=== PATIENT | female | born 1965 | race Two or more races ===

== ENCOUNTER 2020-01-11 11:16 | Observation (INO) | payer OTHER ==
[~2020-01-11] VITALS: Ht 160 cm; Wt 78.1 kg
[2020-01-11] MEDS ORDERED: SODIUM CHLORIDE FLUSH 10ML SYR IVF ONE (12:00)
[2020-01-11] MEDS ORDERED: ASPIRIN 81 MG TABLET CHEW PO ONE (12:00)
[2020-01-11] MEDS ORDERED: ONDANSETRON 2MG/ML, 2ML IVPush ONE (12:00)
[2020-01-11] MEDS ORDERED: LORazepam 2 MG/ML, 1ML IVPush ONE (12:00)
[2020-01-11] MEDS ORDERED: ASPIRIN 81 MG TABLET CHEW ONE (12:09)
[2020-01-11] MEDS ORDERED: ONDANSETRON 2MG/ML, 2ML ONE (12:09)
[2020-01-11] MEDS ORDERED: LORazepam 2 MG/ML, 1ML ONE (12:10)
[2020-01-11 12:18] LABS: BASOPHILS # (AUTO) 0.21 x10^3/uL (0-0.1); BASOPHILS % (AUTO) 4 % (0-1); EOSINOPHILS # (AUTO) 0.07 x10^3/uL (0-0.4); EOSINOPHILS % (AUTO) 1 % (1-7); LYMPHOCYTES # (AUTO) 2.97 x10^3/uL (1-3.4); LYMPHOCYTES % (AUTO) 52 % (22-44); MD NO; MEAN CORPUSCULAR HEMOGLOBIN 29.6 pg (27.0-34.8); MEAN CORPUSCULAR HGB CONC 32.8 g/dL (32.4-35.8); MEAN CORPUSCULAR VOLUME 90.3 fL (80-100); MEAN PLATELET VOLUME 9.6 fL (7.4-10.4); MONOCYTES # (AUTO) 0.46 x10^3/uL (0.2-0.8); MONOCYTES % (AUTO) 8 % (2-9); NEUTROPHILS # (AUTO) 2.05 x10^3/uL (1.8-6.8); NEUTROPHILS % (AUTO) 36 % (42-75); PLATELET COUNT 271 x10^3/uL (130-400); RED BLOOD COUNT 4.73 x10^6/uL (3.82-5.3); RED CELL DISTRIBUTION WIDTH 13.1 % (9.6-15.2)
[2020-01-11 12:27] LABS: ALBUMIN 3.9 g/dL (3.4-5.0); CALCIUM 9.4 mg/dL (8.5-10.1); CREATININE 0.91 mg/dL (0.55-1.02)
[2020-01-11 12:31] LABS: TROPONIN I < 0.015 ng/mL (0.000-0.045)
--- NOTE | 2020-01-11 12:31 | NUR ---
pt presents to ED with c/o headaches, nausea, htn, swelling to hands/feet, unwell feeling x 1 week. pt states she spoke with per PCP 4 days ago who prescribed a diuretic. pt states since that time she has been hypotensive and awoke this am with chest pressure. 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 pt states she took 81mg asa this am, [facility] Gary aware, ordered 81mg asa to be admin in ED to complete full dose of 162mg. piv placed, labs drawn and sent to lab. pt medicated per emar. awaiting cxr, lab results and dispo.
[2020-01-11 12:37] LABS: ANION GAP 6 mmol/L (5-15); CHLORIDE 106 mmol/L (98-107)
--- NOTE | 2020-01-11 13:00 | NUR ---
PT RESTING ON GURNEY, A&O, RESPS EVEN AND UNLABORED, NSR ON RAIL GRINDER WITH NO ECTOPY. PT DENIES ANY CHEST PRESSURE. ALL RESULTS BACK, CHART UP FOR RECHECK, AWAITING FURTHER ORDERS.
[2020-01-11] MEDS ORDERED: ENOXAPARIN 40 MG/0.4 ML SQ SCH (14:00)
[2020-01-11] MEDS ORDERED: ACETAMINOPHEN 325 MG TABLET PO PRN (14:00)
[2020-01-11] MEDS ORDERED: DOCUSATE 100 MG CAPSULE PO PRN (14:00)
[2020-01-11] MEDS ORDERED: ONDANSETRON 2MG/ML, 2ML IVPush PRN (14:00)
[2020-01-11] MEDS ORDERED: POLYETHYLENE GLYCOL 17 GM PACKET PO PRN (14:00)
[2020-01-11] MEDS ORDERED: ONDANSETRON ODT 4 MG PO PRN (14:00)
--- NOTE | 2020-01-11 14:10 | NUR ---
[facility] TELEPHONE HAND-OFF REPORT GIVEN TO CHRISTIANO MELO. PT READY TO GO TO HOSPITAL ROOM.
--- NOTE | 2020-01-11 14:15 | NUR ---
PT TRANSPORTED TO [facility], PT IS A&O, RSPS EVEN AND UNALBORED, DENIES CHEST PAIN. NADN AT TRANSPPORT.
[2020-01-11] MEDS ORDERED: AMLO10TA8 PO (14:30)
[2020-01-11] MEDS ORDERED: LOSA100T14 PO (14:30)
[2020-01-11] MEDS ORDERED: statin PO (14:30)
[2020-01-11 14:54] VITALS: BP 112/74
[2020-01-11 19:13] LABS: TROPONIN I < 0.015 ng/mL (0.000-0.045)
[2020-01-11 19:56] LABS: MICROSCOPIC NOT IND
[2020-01-11 20:38] VITALS: BP 103/59
[2020-01-11] MEDS ORDERED: ATORVASTATIN 40 MG TABLET PO SCH (21:00)
[2020-01-12 00:25] VITALS: BP 124/85
[2020-01-12 01:46] LABS: TROPONIN I < 0.015 ng/mL (0.000-0.045)
[2020-01-12 05:00] LABS: MEAN CORPUSCULAR HEMOGLOBIN 29.2 pg (27.0-34.8); MEAN CORPUSCULAR HGB CONC 32.5 g/dL (32.4-35.8); MEAN PLATELET VOLUME 9.8 fL (7.4-10.4); PLATELET COUNT 253 x10^3/uL (130-400); RED BLOOD COUNT 4.67 x10^6/uL (3.82-5.3); RED CELL DISTRIBUTION WIDTH 13.3 % (9.6-15.2)
[2020-01-12 05:07] LABS: CALCIUM 9.2 mg/dL (8.5-10.1); CHLORIDE 107 mmol/L (98-107)
[2020-01-12 05:10] LABS: ANION GAP 5 mmol/L (5-15); CREATININE 0.82 mg/dL (0.55-1.02)
[2020-01-12 05:49] LABS: MD YES
[2020-01-12 05:56] LABS: <PLATELET ESTIMATE> ADEQUATE; <PLT MORPHOLOGY> NORMAL PLT MORPH; <RBC MORPHOLOGY> NORMAL; EOS#(MANUAL) 0.08 x10^3/uL (0.0-0.4); EOS% (MANUAL) 1 % (1-7); LYMPH#(MANUAL) 5.44 x10^3/uL (1-3.4); LYMPHS% (MANUAL) 68 % (22-44); MONOS#(MANUAL) 0.48 x10^3/uL (0.3-2.7); MONOS% (MANUAL) 6 % (2-9); SEGS% (MANUAL) 25 % (42-75)
[2020-01-12] MEDS ORDERED: ASPIRIN 81 MG TABLET EC PO SCH (06:00)
[2020-01-12 07:49] VITALS: BP 106/64
[2020-01-12] MEDS ORDERED: REGADENOSON 0.4 MG/5 ML SYRINGE ONE (08:13)
[2020-01-12] MEDS ORDERED: LOSARTAN 100 MG TAB PO SCH (09:00)
[2020-01-12] MEDS ORDERED: AMLODIPINE 10 MG TAB PO SCH (09:00)
== END 2020-01-12 14:28 | disposition left against medical advice (07) ==
LOC: ED 13:06 → INTOOBSV 13:09 → EDIP 13:09 → 5SO 14:32
PROVIDERS: ADMIT Internal Medicine; ATTEND Family Medicine
DX: R07.89 Other chest pain (principal); I10 Essential (primary) hypertension; E78.5 Hyperlipidemia, unspecified; F41.9 Anxiety disorder, unspecified; Z86.73 Personal history of transient ischemic attack (TIA), and cerebral infarction without residual deficits; Z88.0 Allergy status to penicillin; Z79.899 Other long term (current) drug therapy; Z79.82 Long term (current) use of aspirin; Z79.890 Hormone replacement therapy
CPT/HCPCS: 36415; 71045; 78452; 80048; 81003; 82040; 83880; 84484; 85025; 93005; 93017; 96372; 96374; 96375; 99285; A9502; C9898; G0378; J1650; J2060; J2405; J2785